=== PATIENT | female | born 1970 | race Caucasian/White ===

== ENCOUNTER 2024-07-19 14:37 | Emergency (ER) | payer OTHER, SELFPAY ==
[2024-07-19 14:45] VITALS: BP 146/87; BMI 14.6
[2024-07-19 15:02] VITALS: BP 49/14
[2024-07-19 15:09] VITALS: BP 118/78
[2024-07-19] MEDS: NSS 500 IV (15:18)
[2024-07-19] MEDS: ZOFRAN 4 MG IV (15:18)
[2024-07-19] MEDS: DILAUDID 1 MG IV (15:19)
[2024-07-19 15:29] LABS: % Basophils 0.4 % (0-2); % Eosinophils 0.1 % (0-6); % Immature Granulocytes 0.4 % (0-0.5); % Lymphocytes 4.7 % (20.5-51.1); % Neutrophils 91.4 % (42.2-75.2); Absolute Lymphocytes 0.5 10^3/uL (1.2-3.4); Absolute Monocytes 0.3 10^3/uL (0.1-0.6); Absolute Neutrophils 10.2 10^3/uL (1.4-6.5); Hematocrit 38.6 % (37.0-47.0); Hemoglobin 13.6 g/dL (12.0-16.0); Mean Corp Hgb Conc. 35.2 g/dL (33.0-37.0); Mean Corpuscular Hgb 28.5 pg (27.0-31.0); Mean Corpuscular Volume 80.8 fL (81.0-99.0); Mean Platelet Volume 8.1 fL (7.4-10.4); Nucleated Red Blood Cells % 0 %; Platelet Count 410 10^3/uL (130-400); Red Blood Cell Count 4.78 10^6/uL (4.20-5.40); Red Cell Dist. Width 16.2 % (11.5-14.5); White Blood Cell Count 11.2 10^3/uL (4.8-10.8)
--- NOTE | 2024-07-19 15:35 | ED.GENMED ---
History of Present Illness
General
Chief Complaint: Abdominal Symptoms
Source: patient
Time Seen by Provider: 07/19/24 15:06
History of Present Illness
History of Present Illness:
54yoF with a history of rectal cancer presenting via EMS for evaluation of abdominal pain. Patient was in remission for many years. She follows with [place] [facility], Dr. Regalado. They found a 'spot' on her lungs in December of this year. She
underwent imaging which showed metastatic disease. Patient was told that there was nothing they could do and it was recommended that she be placed on hospice. Patient states she is not ready for hospice. She is currently not receiving any cancer
treatments. She is maintained on oxycodone 15 mg Q4 PRN. Patient started to have worsening abdominal pain yesterday with associated nausea and vomiting. Her symptoms were not alleviated with her home oxycodone so she called EMS. Patient states
she is mainly here for symptomatic relief and does not think she needs any further testing at this time. She typically goes to [facility] and receives IV pain medications and is able to be discharged. Colostomy output has been normal.
Past History
Past History
ED Past Medical History: Cancer (anal), Hypercholesterolemia and Other (anal CA s/p Chemo/XRT)
ED Past Surgical History: Bowel resection (rectal sx w/ colostomy) and Other (Shoulder repair)
Social History
Tobacco: Smoker
Alcohol: None
Drug: Marijuana
Personal:
Living: with family
Employment: Not employed
Phy Exam
General Physical Exam
General Presentation: well appearing and no apparent distress
General age: appears stated age
General Skin: warm and dry
General Habitus: cachetic and frail
ENT Exam
ENT Exam: normocephalic
Cardiovascular Exam
Cardiovascular Exam: regular rate/rhythm and no murmur
Pulmonary Exam
Pulmonary Exam: lungs clear, no respiratory distress, no crackles and no wheezing
Gastrointestinal Exam
Gastrointestinal Exam: non tender, soft and non distended
External Findings: colostomy
Rivas Coma Scale
Eye Opening: Spontaneous
Verbal Response: Oriented
Motor Response: Obeys Commands
GCS Total Score: 15
Skin Exam
Skin Exam: normal color and warm/dry
Psychiatric Exam
Psychiatric Exam: normal mood/affect
Course
Orders/Labs/Results
Orders:
Orders
07/19/24 14:44
EKG [Electrocardiogram (*1)] Urgent
Reason for Study: Abdominal Pain
EKG- Treatment ONCE
07/19/24 15:06
HYDROmorphone [Dilaudid] 1 mg IV NOW STA
07/19/24 15:08
Ondansetron Injectable [Zofran] 4 mg .ROUTE .STK-MED ONE
07/19/24 15:16
Complete Blood Count/With Diff Urgent
Comprehensive Metabolic Panel Urgent
Lipase Urgent
07/19/24 15:17
0.9% Sodium Chloride 500 ml [Nss] 500 ml IV BOLUS
Ondansetron Injectable [Zofran] 4 mg IV NOW STA
Abnormal Lab Results
07/19/24
15:16
WBC 11.2 H 10^3/uL
(4.8-10.8)
MCV 80.8 L fL
(81.0-99.0)
RDW 16.2 H %
(11.5-14.5)
Plt Count 410 H 10^3/uL
(130-400)
Absolute Neuts (auto) 10.2 H 10^3/uL
(1.4-6.5)
Absolute Lymphs (auto) 0.5 L 10^3/uL
(1.2-3.4)
Neutrophils % 91.4 H %
(42.2-75.2)
Lymphocytes % 4.7 L %
(20.5-51.1)
Carbon Dioxide 20 L mmol/L
(22-30)
Creatinine 0.5 L mg/dL
(0.6-1.0)
Glucose 124 H mg/dl
(70-99)
07/19/24 15:16
07/19/24 15:16
Vital Signs
Initial and Last Documented VS:
Initial Vital Signs
Temp Pulse Resp BP Pulse Ox
98.1 F 81 21 146/87 97
07/19/24 14:45 07/19/24 14:45 07/19/24 14:45 07/19/24 14:45 07/19/24 14:45
Last Documented Vital Signs
Temp Pulse Resp BP Pulse Ox
98.1 F 102 16 99/70 98
07/19/24 14:45 07/19/24 17:27 07/19/24 17:27 07/19/24 17:27 07/19/24 17:27
MDM/Problems Addressed
Differential Diagnosis Includes:
54yoF here with abdominal pain and vomiting. Hx of metastatic rectal cancer which she was told was incurable with no treatment options. She follows with [place] [facility]. Take oxycodone 15mg Q4 PRN. She is afebrile and hemodynamically stable.
Patient evaluated after receiving pain medications. She appears comfortable and abdominal exam is benign. Differential diagnosis includes but is not limited to: cancer-related pain, SBO, doubt acute surgical process given benign exam
Initial ED plan: Patient received IV Zofran and Dilaudid prior to my exam. Will check abdominal labs and give IV fluid bolus. Patient declines imaging at this time and states she is mainly here for pain control.
*Critical Care Note
Total Time (30-74mins, 75-104mins- exclusive of procedures): Not Applicable
Update Note
Update Note:
Labs reveal a mild leukocytosis with a WBC of 11.2 which is nonspecific and possibly reactive 2/2 vomiting or underlying malignancy. Renal function, LFTs, lipase normal. Pain is controlled on reassessment. She continues to decline imaging. She is
stable for discharge. She was advised to f/u with her PCP and oncologist. ED return precautions discussed. She expressed understanding and is agreeable to plan. Patient discharged in stable condition with her family members.
ED Attending Note
-
Portions of this chart may have been created with voice recognition software.� Occasional wrong word or��sound alike� substitutions may have occurred due to the inherent limitations of voice recognition software.
Discharge Plan
Departure
Patient Disposition: Home (Routine Discharge)
Date of Disposition: 07/19/24
Time of Disposition: 16:52
Patient with high blood pressure during this ER visit?: No
Discharge Problem:
Cancer-related pain, Nausea & vomiting
Instructions: Abdominal Pain
Prescriptions:
New
ondansetron 4 mg tablet,disintegrating
4 mg PO Q6H PRN (Reason: nausea and vomiting) Qty: 20 0RF
No Action
atorvastatin 40 MG tablet
80 mg PO DAILY
aspirin 81 MG tablet,delayed release (DR/EC)
81 mg PO DAILY
clindamycin HCl 300 MG capsule
300 mg PO TID Qty: 30 0RF
tramadol 50 MG tablet
50 mg PO Q6HPRN PRN (Reason: severe pain) Qty: 12 0RF
Referrals:
Violetta Regalado MD [Family Provider] -
Activity Restrictions/Additional Instructions:
Continue taking oxycodone as needed for pain. Take Zofran as needed for nausea.
Please follow-up with your family doctor and oncologist. Return to the ER with any new or worsening symptoms.
Interventions
Interventions:
*Risk Screen - Suicide Last Done: 07/19/24 14:45
*General Assessment Last Done: 07/19/24 14:45
*Neglect/Abuse Screening Last Done: 07/19/24 14:45
ED- Fall Risk Assessment Last Done: 07/19/24 15:01
*ED COVID-19 Vaccine History Last Done: 07/19/24 14:45
*Nursing Disposition Last Done: 07/19/24 17:33
AP-Rubpfa-Vmmhplxfbb Assessment Last Done: 07/19/24 15:01
Discharge Date and Time
Discharge Date/Time: 07/19/24 17:33
Print Language: ITALIAN
[2024-07-19 15:52] LABS: ALT (SGPT) 28 U/L (0-35); AST (SGOT) 28 U/L (14-36); Albumin 4.4 g/dl (3.5-5.0); Alkaline Phosphatase 106 U/L (38-126); Blood Urea Nitrogen 17 mg/dl (7-17); Calcium 9.9 mg/dl (8.4-10.2); Carbon Dioxide 20 mmol/L (22-30); Chloride 104 mmol/L (98-107); Estimated Creatinine Clearance 64 ml/min; Glucose 124 mg/dl (70-99); Lipase 64 U/L (23-300); Potassium 4.5 mmol/L (3.5-5.1); Sodium 138 mmol/L (135-145); Total Bilirubin 0.7 mg/dl (0.2-1.3); Total Protein 7.1 g/dl (6.3-8.2); eGFR > 60.00
[2024-07-19 17:27] VITALS: BP 99/70
== END 2024-07-19 17:33 | disposition home or self-care (01) ==
LOC: EMR 14:37
PROVIDERS: EMERGENCY PHYSICIAN Emergency Medicine; FAMILY PHYSICIAN Internal Medicine Hematology & Oncology
DX: G89.3 Neoplasm related pain (acute) (chronic) (principal); R11.2 Nausea with vomiting, unspecified; E78.00 Pure hypercholesterolemia, unspecified; F17.200 Nicotine dependence, unspecified, uncomplicated; Z85.048 Personal history of other malignant neoplasm of rectum, rectosigmoid junction, and anus; Z93.3 Colostomy status
CPT/HCPCS: 99283; 96374; 96375; 80053; 83690; 85025; 93005